=== PATIENT | female | born 1965 | race Hispanic/Latino ===

== ENCOUNTER 2020-05-01 15:43 | Emergency (ER) | payer OTHER, MEDICAID, SELFPAY ==
[2020-05-01 15:49] VITALS: BP 151/80; PULSE 84; RESP 22; TEMP 37.1; O2SAT 99
== END 2020-05-01 17:46 | disposition left against medical advice (07) ==
PROVIDERS: Emergency Provider Emergency Medicine
CPT/HCPCS: 99281